=== PATIENT | male | born 2000 ===

== ENCOUNTER 2022-01-17 10:30 | Day surgery (SDC) | payer OTHER ==
[2022-01-17] MEDS ORDERED: TYLENOL ARTHRI650 MG PO (15:56)
[2022-01-17] MEDS ORDERED: ULTRAM50 MG PO (15:56)
[2022-01-17] MEDS ORDERED: KETO10TA2 PO (15:56)
[2022-01-17] MEDS ORDERED: MIRALAX17 GM PO (15:56)
== END 2022-01-17 20:20 | disposition home or self-care (01) ==
LOC: CIR.AMB 10:30
PROVIDERS: ATTEND Surgery
DX: K40.90 Unilateral inguinal hernia, without obstruction or gangrene, not specified as recurrent (principal); Z20.822 Contact with and (suspected) exposure to COVID-19